=== PATIENT | male | born 1990 | race Caucasian/White ===

== ENCOUNTER 2018-07-11 15:52 | Inpatient (IN) | payer BC ==
[2018-07-11] MEDS: PIPER-TAZO 3.375 GM IV (PMX) 100 ML IVPB ×2 (16:28→23:16)
[2018-07-11] MEDS: SOD CHLORIDE 0.9% 1,000 ML IV (16:28)
[2018-07-11] MEDS: KETOROLAC 30 MG INJ IV (16:28)
[2018-07-11 16:48] LABS: ADD MAN DIFF? NO
[2018-07-11 16:50] LABS: ABNORMAL IP MESSAGE 1; BASOPHIL # 0.1 10^3/ul (0.0-0.1); BASOPHILS % 0.3 % (0.0-2.0); EOSINOPHILS # 0.1 10^3/ul (0.0-0.5); EOSINOPHILS % 0.7 % (0.0-7.0); HEMATOCRIT 40.5 % (42.0-52.0); HEMOGLOBIN 13.7 g/dl (14.0-18.0); LYMPHOCYTES % 5.3 % (15.0-51.0); MEAN CORPUSCULAR HEMOGLOBIN 31.1 pg (29.0-33.0); MEAN CORPUSCULAR HGB CONC 33.8 g/dl (32.0-37.0); MEAN CORPUSCULAR VOLUME 91.8 fl (82.0-101.0); MEAN PLATELET VOLUME 10.3 fl (7.4-10.4); MONOCYTE # 2.2 10^3/ul (0.3-0.9); MONOCYTES % 11.8 % (0.0-11.0); NEUTROPHILS % 81.3 % (39.0-77.0); PLATELET COUNT 352 10^3/UL (140-415); POSITIVE DIFF @See below; RED BLOOD COUNT 4.41 10^6/ul (4.70-6.10); RED CELL DISTRIBUTION WIDTH 11.6 % (11.5-14.5)
[2018-07-11 16:50] LABS: WHITE BLOOD COUNT 18.4 10^3/ul (4.8-10.8)
[2018-07-11 17:02] LABS: ANION GAP 13 (5-13); BLOOD UREA NITROGEN 10 mg/dl (7-20); CALCIUM 10.4 mg/dl (8.4-10.2); CARBON DIOXIDE 25 mmol/L (21-31); CHLORIDE 103 mmol/L (97-110); CREATININE 0.81 mg/dl (0.61-1.24); Estimated GFR > 60 mL/min (>60); GLUCOSE 108 mg/dl (70-220); SODIUM 141 mmol/L (135-144)
[2018-07-11] MEDS: SOD CHLORIDE 0.9% 100 ML (18:14)
[2018-07-11] MEDS: IOHEXOL 300MG/ML 150 ML BTL (18:14)
[2018-07-11] MEDS ORDERED: ONDANSETRON 4 MG INJ IV (19:30)
[2018-07-11] MEDS: ACETAMINOPHEN 325 MG TAB PO (20:22)
[2018-07-11] MEDS ORDERED: ZOLPIDEM 5 MG TAB PO (22:30)
[2018-07-11] MEDS: morphine 2 MG INJ IV (23:13)
[2018-07-11] MEDS: ONDANSETRON 4 MG INJ IV (23:14)
[2018-07-11] MEDS: DEXTROSE 5%-0.45% NACL 1,000 ML IV (23:16)
[2018-07-12] MEDS: ACETAMINOPHEN 325 MG TAB PO ×3 (01:42→13:18)
[2018-07-12] MEDS: morphine 2 MG INJ IV ×3 (02:11→21:24)
[2018-07-12] MEDS: PIPER-TAZO 3.375 GM IV (PMX) 100 ML IVPB ×3 (05:50→18:00)
[2018-07-12] MEDS: DEXTROSE 5%-0.45% NACL 1,000 ML IV ×3 (08:30→18:54)
[2018-07-12] MEDS: morphine 4 MG/ML VIAL IV (08:50)
[2018-07-12] MEDS: ONDANSETRON 4 MG INJ IV ×2 (13:30→21:24)
[2018-07-12] MEDS ORDERED: ROCURONIUM 50 MG INJ (16:08)
[2018-07-12] MEDS ORDERED: PROPOFOL 20 ML (16:08)
[2018-07-12] MEDS ORDERED: FENTAnyl 50 MCG/ML VIAL (16:08)
[2018-07-12] MEDS ORDERED: MIDAZOLAM 1 MG/ML 2 ML INJ (16:08)
[2018-07-12] MEDS ORDERED: SUCCINYLCHOLINE CHLORIDE 100 MG/5 ML SYG IV (16:08)
[2018-07-12] MEDS ORDERED: METOCLOPRAMIDE 10 MG INJ IV (16:30)
[2018-07-12] MEDS ORDERED: EPHEDrine SULFATE 50 MG/5 ML SYG IV (16:30)
[2018-07-12] MEDS ORDERED: LABETALOL HCL 20MG INJ IV (16:30)
[2018-07-12] MEDS ORDERED: ONDANSETRON 4 MG INJ IV (16:30)
[2018-07-12] MEDS ORDERED: HYDROmorphONE 1 MG/5 ML IV SYRINGE IV ×3 (16:30)
[2018-07-12] MEDS ORDERED: MEPERIDINE 25 MG INJ IV (16:30)
[2018-07-12] MEDS ORDERED: DIPHENHYDRAMINE 50 MG INJ IV (16:30)
[2018-07-12] MEDS ORDERED: FENTAnyl 50 MCG/ML VIAL IV ×3 (16:30)
[2018-07-12] MEDS ORDERED: OXYCODONE/ACETAMINOPHEN (5/325) TAB PO (16:30)
[2018-07-12] MEDS ORDERED: LIDOCAINE 1%/EPI (1:100,000) (MDV) 20 ML (16:53)
[2018-07-12] MEDS ORDERED: KETOROLAC 30 MG INJ ×2 (16:54→17:16)
[2018-07-12] MEDS ORDERED: ONDANSETRON 4 MG INJ (16:54)
[2018-07-12] MEDS ORDERED: METOCLOPRAMIDE 10 MG INJ (16:54)
[2018-07-12] MEDS ORDERED: DEXAMETHASONE 4 MG/ML 5 ML INJ (16:54)
[2018-07-12] MEDS ORDERED: SUGAMMADEX SODIUM 200 MG/2 ML VIAL IV (17:16)
[2018-07-13] MEDS: PIPER-TAZO 3.375 GM IV (PMX) 100 ML IVPB ×3 (00:16→12:34)
[2018-07-13] MEDS: morphine 2 MG INJ IV ×2 (05:22→11:12)
[2018-07-13] MEDS: DEXTROSE 5%-0.45% NACL 1,000 ML IV ×2 (11:08→14:30)
== END 2018-07-13 16:30 | disposition home health service (06) | DRG 134 ==
LOC: E/R 15:52 → 2NE 19:03
PROC: 0W960ZZ Drainage of Neck, Open Approach (ICD-10-PCS; principal; 2018-07-12 15:06)
DX: K12.2 Cellulitis and abscess of mouth (principal); I89.8 Other specified noninfective disorders of lymphatic vessels and lymph nodes; Z87.891 Personal history of nicotine dependence; K02.9 Dental caries, unspecified; K04.5 Chronic apical periodontitis; M27.2 Inflammatory conditions of jaws
CPT/HCPCS: 36415; 70491; 80048; 83605; 85025; 87040-91; 87070; 87075; 87116; 96365; 96366; 96375; 99285-25; G0378